=== PATIENT | female | born 1990 | race Caucasian/White ===

== ENCOUNTER 2019-01-10 10:19 | Emergency (ER) | payer MEDICAID, OTHER ==
[~2019-01-10] VITALS: Ht 160 cm; Wt 66.4 kg
[2019-01-10 11:15] VITALS: BP 110/73
== END 2019-01-10 12:45 | disposition home or self-care (01) ==
LOC: ED 12:34
DX: R07.89 Other chest pain (principal); M25.561 Pain in right knee
CPT/HCPCS: 36415; 71046; 80048; 82040; 84439; 84443; 84703; 85025; 85379; 93005; 99284